=== PATIENT | male | born 2000 | race Caucasian/White ===

== ENCOUNTER 2023-04-22 23:23 | Emergency (ER) | payer MEDICARE, SELFPAY ==
[2023-04-22 23:25] VITALS: BP 135/80
[2023-04-23 00:56] LABS: COVID-19 Antigen Negative (Negative)
[2023-04-23] MEDS: DELTASONE 50 MG PO (02:48)
--- NOTE | 2023-04-23 03:13 | ED.GENMED ---
History of Present Illness
General
Chief Complaint: Cold/Flu/URI Symptoms
Source: patient
Exam Limitations: none
Time Seen by Provider: 04/23/23 00:18
Nursing documentation reviewed up to this point in time: agreed with
Travel History
Have you had any contact with someone who has COVID-19?: No
Do you have any symptoms of coronavirus? Fever > 100 degrees, chills, cough, shortness of breath, sore throat, loss of taste or smell, muscle aches, or headache?: No
History of Present Illness
History of Present Illness:
23-year-old male with no chronic medical issues presents to the emergency room for evaluation of cough. Patient reports persistent cough for the past 2 to 3 weeks. He says he will occasionally have episodes of coughing fits where he feels some
posttussive nausea but no vomiting. He says that he has been bringing up significant amount of dark brown sputum particularly over the past week or 2. He says that over the past 2 days he feels the cough is a bit worse and yesterday he noticed
that when he coughed he brought up a scant amount of blood in the sputum. Came to the emergency room to be assessed. He has not had any chest pain. He denies any shortness of breath. Denies any fevers or chills. He does have some congestion he
says mild sore throat. He denies any other complaints today.
Past History
Past History
ED Past Medical History: None
ED Past Surgical History: Other (unknown)
Social History
Tobacco: Smoker
Drug: Other (meth)
Review of Systems
Review of Systems
All Other Systems: ROS reviewed and negative except as documented in HPI and ROS
Constitutional: Reports fatigue; Denies fever or chills
EENT: Reports sore throat and runny nose
Respiratory: Reports cough; Denies trouble breathing
Cardiac: Denies chest pain or palpitations
ABD/GI: Denies abdominal pain, nausea or vomiting
: Denies flank pain
Musculoskeletal: Denies neck pain or back pain
Neurological: Denies headache, weakness or numbness
Phy Exam
Physical Exam
Physical Exam:
General: Awake, alert, oriented x3; no acute distress
Head: Normocephalic, atraumatic
Eyes: Conjunctiva normal, sclera anicteric
Throat: Airway intact, handling secretions, no oropharyngeal erythema/injection, midline uvula, no tonsillar exudate or enlargement
Neck: Trachea midline, supple without meningismus
Lungs: Clear to auscultation bilaterally, no wheezing, rales, rhonchi; occasional coughing
Heart: Regular rate and rhythm, no murmurs, gallops, or rubs
Abd: Soft, non distended, nontender
Neuro: Cranial nerves grossly intact, speech fluid
Skin: no rash
Extremities: No edema in extremities, warm and well-perfused
Scores
Heart Failure Risk
Heart Failure Risk Score: Not Applicable
Heart Score for Chest Pain Patients
STEMI patient?: Not applicable
Withdrawal Assessment of Alcohol
Withdrawal Assessment Completed?: Not applicable
Course
Orders/Labs/Results
Orders:
Orders
04/23/23 00:24
CR Chest - 2 Views Urgent
Comment:
Reason For Exam: cough
04/23/23 00:29
COVID-19 Antigen Urgent
Source: Nasal Swab
Influenza A+B Rapid Molecular Urgent
JUAN Source: Nasal Swab
Specimen Description:
04/23/23 02:31
Prednisone [Deltasone] 50 mg PO NOW STA
Vital Signs
Initial and Last Documented VS:
Initial Vital Signs
Temp Pulse Resp BP Pulse Ox
36.4 C 88 20 135/80 100
04/22/23 23:25 04/22/23 23:25 04/22/23 23:25 04/22/23 23:25 04/22/23 23:25
Last Documented Vital Signs
Temp Pulse Resp BP Pulse Ox
36.4 C 88 20 135/80 100
04/22/23 23:25 04/22/23 23:25 04/22/23 23:25 04/22/23 23:25 04/22/23 23:25
MDM/Problems Addressed
Differential Diagnosis Includes:
Viral URI, bronchitis, pneumonia
MDM/Problems Addressed:
23-year-old male presents for persistent cough for the past 2 to 3 weeks productive of dark sputum and he says scant amount of blood-tinged sputum yesterday. Vital signs all within normal limits here. Exam as above. Sent swabs for influenza and
COVID which were negative. Sent for chest x-ray reviewed by me shows no pneumonia. Suspect likely acute bronchitis. Will treat with a course of steroids, albuterol as needed for coughing fits and Mucinex. Patient feels comfortable this plan. He
will follow-up with his PCP. Spoke with return precautions all questions answered.
*Radiology
Radiology exam reviewed: preliminary read by ED provider and radiology read reviewed
*Pulse Oximetry
Patient hypoxic: no
*Critical Care Note
Total Time (30-74mins, 75-104mins- exclusive of procedures): Not Applicable
Data Reviewed
Source: patient
ED Attending Note
-
Portions of this chart may have been created with voice recognition software.� Occasional wrong word or��sound alike� substitutions may have occurred due to the inherent limitations of voice recognition software.
Discharge Plan
Departure
Patient Disposition: Home (Routine Discharge)
Date of Disposition: 04/23/23
Time of Disposition: 02:31
Patient with high blood pressure during this ER visit?: No
Discharge Problem:
Acute bronchitis
Instructions: Acute Bronchitis, Adult (DC)
Prescriptions:
New
albuterol sulfate [ProAir HFA] 90 mcg/actuation HFA aerosol inhaler
1 puff inhalation Q4HPRN PRN (Reason: shortness of breath) Qty: 6.7 0RF
guaifenesin [Mucinex] 600 mg tablet extended release 12hr
600 mg PO Q12H PRN (Reason: Cough) Qty: 14 0RF
prednisone 10 mg Tablet
See Rx Instructions .ROUTE .COMPLEX Qty: 30 0RF
Rx Instructions:
Take By Mouth:
40 mg daily x3 days, 30 mg daily x3 days,
20 mg daily x3 days, 10 mg daily x3 days.
Referrals:
Aditi Rose MD [Family Provider] - Call in 1-3 days for appt
Activity Restrictions/Additional Instructions:
Thank you for visiting the Emergency Department at [facility] [place].
1. Please schedule a follow up appointment as directed. Call first thing tomorrow morning to make an appointment.
2. If indicated, please take your medications as instructed and indicated on discharge paperwork.
3. If any of your symptoms do not improve, or persist, or become more severe within 6-12 hours, please return to the emergency department for further care.
4. Please return to the emergency department if you develop a headache, neck pain/stiffness, fever greater than 100.4F, chest pain, shortness of breath, persistent nausea, vomiting, slurred speech, difficulty walking, numbness/tingling, weakness,
signs of infection or any other symptoms that are worrisome to you.
Please call [phone] if you have any questions.
Interventions
Interventions:
*Risk Screen - Suicide Last Done: 04/22/23 23:25
*General Assessment Last Done: 04/23/23 00:35
*Neglect/Abuse Screening Last Done: 04/22/23 23:25
*ED COVID-19 Vaccine History Last Done: 04/23/23 00:33
*Nursing Disposition Last Done: 04/23/23 02:57
ED- Pulmonary Assessment Last Done: 04/23/23 00:17
Discharge Date and Time
Discharge Date/Time: 04/23/23 02:58
== END 2023-04-23 02:58 | disposition home or self-care (01) ==
LOC: EMR 23:23
PROVIDERS: EMERGENCY PHYSICIAN Emergency Medicine; FAMILY PHYSICIAN Internal Medicine
DX: J20.9 Acute bronchitis, unspecified (principal); F17.200 Nicotine dependence, unspecified, uncomplicated
CPT/HCPCS: 99283; 71046; 87502; 87811

== ENCOUNTER 2023-08-28 16:15 | Emergency (ER) | payer SELFPAY ==
[2023-08-28 16:21] VITALS: BP 114/79
--- NOTE | 2023-08-28 16:58 | ED.GENMED ---
History of Present Illness
General
Chief Complaint: Crisis Evaluation
Source: patient
Exam Limitations: none
Time Seen by Provider: 08/28/23 16:29
Travel History
Have you had any contact with someone who has COVID-19?: No
Do you have any symptoms of coronavirus? Fever > 100 degrees, chills, cough, shortness of breath, sore throat, loss of taste or smell, muscle aches, or headache?: No
History of Present Illness
History of Present Illness:
Patient presents to ED for medical evaluation after 302 petition was filed by his grandmother, secondary to 'psychosis' and today where he was found trespassing in his neighbor's house. Upon arrival, patient himself has no complaints. Denies
recent illness. Patient does not take any medications daily. Patient is an ex-smoker. Denies use of any illicit medications. Denies drinking alcohol.
Past History
Past History
ED Past Medical History: None
ED Past Surgical History: Other (unknown)
Social History
Tobacco: Smoker
Drug: Other (meth)
Review of Systems
Review of Systems
Allergies reviewed?: Yes
All Other Systems: ROS reviewed and negative except as documented in HPI and ROS
Constitutional: Reports no symptoms
Respiratory: Reports no symptoms
Cardiac: Reports no symptoms
ABD/GI: Reports no symptoms
Musculoskeletal: Reports no symptoms
Skin: Reports no symptoms
Neurological: Reports no symptoms
Psychiatric: Denies depression, anxiety or suicidal
Phy Exam
Physical Exam
Physical Exam:
Physical Exam
General: no apparent distress, not acutely ill. afebrile
Head: nc/at. eomi
Neck: supple. no meningeal signs.
Heart: s1/s2 regular rate and rhythm, no murmur. equal radial pulses.
Lungs: no acute respiratory distress. clear bilaterally
Abdomen: normal bowel sounds. not tender.
Neuro: alert and oriented. no focal neurological deficits
Skin: no rash
Psychiatric: well kept. interactive and cooperative
Extremities: no edema. no calf tenderness.
Course
Orders/Labs/Results
Orders:
Orders
08/28/23 16:49
Alcohol Urgent
Basic Metabolic Panel Urgent
Complete Blood Count/With Diff Urgent
08/28/23 16:57
Crisis Consult Urgent
Reason for Consult: mental status change
08/28/23 18:58
Urine Drug Abuse Screen Urgent
Date Specimen was Collected: 08/28/23
Time Specimen was Collected: 18:57
Abnormal Lab Results
08/28/23
16:49
RBC 4.39 L 10^6/uL
(4.70-6.10)
MCH 31.2 H pg
(27.0-31.0)
Creatinine 0.5 L mg/dL
(0.7-1.3)
08/28/23 16:49
08/28/23 16:49
Vital Signs
Initial and Last Documented VS:
Initial Vital Signs
Temp Pulse BP Pulse Ox
99.0 F 89 114/79 98
08/28/23 16:21 08/28/23 16:21 08/28/23 16:21 08/28/23 16:21
Last Documented Vital Signs
Temp Pulse BP Pulse Ox
99.0 F 89 114/79 98
08/28/23 16:21 08/28/23 16:21 08/28/23 16:21 08/28/23 16:21
MDM/Problems Addressed
MDM/Problems Addressed:
Awaiting evaluation by tele psychiatry.
Pt evaluated by tele-psychiatry - 302 upheld. Pt is medically cleared and will be transferred to psychiatric facility for further evaluation and treatment.
*Critical Care Note
Total Time (30-74mins, 75-104mins- exclusive of procedures): Not Applicable
ED Attending Note
-
Portions of this chart may have been created with voice recognition software.� Occasional wrong word or��sound alike� substitutions may have occurred due to the inherent limitations of voice recognition software.
Discharge Plan
Departure
Patient Disposition: Psych Facility
Date of Disposition: 08/28/23
Time of Disposition: 18:29
Patient Status:: 302
Discharge Problem:
Psychosis
Prescriptions:
No Action
albuterol sulfate [ProAir HFA] 90 mcg/actuation HFA aerosol inhaler
1 puff inhalation Q4HPRN PRN (Reason: shortness of breath) Qty: 6.7 0RF
guaifenesin [Mucinex] 600 mg tablet extended release 12hr
600 mg PO Q12H PRN (Reason: Cough) Qty: 14 0RF
prednisone 10 mg Tablet
See Rx Instructions .ROUTE .COMPLEX Qty: 30 0RF
Rx Instructions:
Take By Mouth:
40 mg daily x3 days, 30 mg daily x3 days,
20 mg daily x3 days, 10 mg daily x3 days.
Interventions
Interventions:
*Risk Screen - Suicide Last Done: 08/28/23 16:26
*General Assessment Last Done: 08/28/23 16:26
*Neglect/Abuse Screening Last Done: 08/28/23 16:26
*ED COVID-19 Vaccine History Last Done: 08/28/23 16:26
*Nursing Disposition Last Done: 08/28/23 22:47
ED-Psychological Assessment Last Done: 08/28/23 16:26
Discharge Date and Time
Discharge Date/Time: 08/28/23 22:48
Print Language: LATVIAN
[2023-08-28 17:00] LABS: % Basophils 0.5 % (0-2); % Eosinophils 0.8 % (0-6); % Immature Granulocytes 0.4 % (0-0.5); % Lymphocytes 39.3 % (20.5-51.1); % Monocytes 7.2 % (1.7-9.3); % Neutrophils 51.8 % (42.2-75.2); Absolute Eosinophils 0.1 10^3/uL (0-0.7); Absolute Monocytes 0.5 10^3/uL (0.1-0.6); Absolute Neutrophils 3.9 10^3/uL (1.4-6.5); Hemoglobin 13.7 g/dL (13.0-18.0); Mean Corp Hgb Conc. 33.4 g/dL (33.0-37.0); Mean Corpuscular Hgb 31.2 pg (27.0-31.0); Mean Corpuscular Volume 93.4 fL (80.0-94.0); Mean Platelet Volume 8.7 fL (7.4-10.4); Nucleated Red Blood Cells % 0 % (-); Platelet Count 229 10^3/uL (130-400); Red Blood Cell Count 4.39 10^6/uL (4.70-6.10); Red Cell Dist. Width 12.9 % (11.5-14.5); White Blood Cell Count 7.5 10^3/uL (4.8-10.8)
[2023-08-28 17:17] LABS: Blood Urea Nitrogen 17 mg/dl (9-20); Calcium 9.9 mg/dl (8.4-10.2); Carbon Dioxide 29 mmol/L (22-30); Chloride 100 mmol/L (98-107); Glucose 84 mg/dl (70-99); Potassium 4.3 mmol/L (3.5-5.1); Sodium 139 mmol/L (135-145); eGFR > 60.00
[2023-08-28 17:18] LABS: Alcohol None Detected
[2023-08-28 19:18] LABS: Amphetamines Negative (Negative); Barbiturates Negative (Negative); Benzodiazepines Negative (Negative); Buprenorphine Negative (Negative); Cocaine Negative (Negative); Marijuana Negative (Negative); Methadone Negative (Negative); Methamphetamines Negative (Negative); Opiates Negative (Negative); Phencyclidine Negative (Negative); Tricyclic Antidepressants Negative (Negative)
== END 2023-08-28 22:48 ==
LOC: EMR 16:15
PROVIDERS: EMERGENCY PHYSICIAN Emergency Medicine
DX: F29 Unspecified psychosis not due to a substance or known physiological condition (principal); F17.200 Nicotine dependence, unspecified, uncomplicated
CPT/HCPCS: 99283; 80048; 80306; 82077; 85025

== ENCOUNTER 2023-10-28 16:52 | Emergency (ER) | payer SELFPAY ==
[2023-10-28 16:56] VITALS: BP 128/77; BMI 19.3
--- NOTE | 2023-10-28 19:42 | ED.GENMED ---
History of Present Illness
General
Chief Complaint: Crisis Evaluation
Source: patient
Exam Limitations: none
Time Seen by Provider: 10/28/23 19:06
Nursing documentation reviewed up to this point in time: agreed with
History of Present Illness
History of Present Illness:
The patient is a 23-year-old man who was brought in on a 302 placed by his grandmother and brother. His grandmother reports that he has been leaving the home for days at a time. She is worried he is not taking care of himself. Patient admits to
hearing voices. He denies specific homicidal and suicidal thoughts. He reports he is God. 302 upheld by [employer].
Past History
Past History
ED Past Medical History: Psychiatric
ED Past Surgical History: Other (unknown)
Social History
Tobacco: Smoker
Alcohol: Other
Drug: Other (meth)
Personal: Single
Living: with family
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
Family History
Family History: Other
Review of Systems
Review of Systems
Allergies reviewed?: Yes
Other source history: family (Grandmother who is at the bedside)
All Other Systems: ROS reviewed and negative except as documented in HPI and ROS
Constitutional: Reports no symptoms
EENT: Reports no symptoms
Respiratory: Reports no symptoms
Cardiac: Reports no symptoms
ABD/GI: Reports no symptoms
: Reports no symptoms
Musculoskeletal: Reports no symptoms
Skin: Reports no symptoms
Neurological: Reports no symptoms
Endocrine: Reports no symptoms
Hematologic/Lymphatic: Reports no symptoms
Psychiatric: Reports no symptoms
Phy Exam
Physical Exam
Physical Exam:
Physical Exam
General: no apparent distress, not acutely ill. Flat affect
Neck: supple. no meningeal signs. normal psoterior pharynx
Heart: s1/s2 regular rate and rhythm, no murmur. equal radial pulses.
Lungs: no acute respiratory distress.
Abdomen: Soft, nontender
Neuro: alert and orientedx3. no focal neurological deficits
Skin: no rash
Psychiatric: well kept. Answers questions quietly and slowly. Flat affect. Appears slightly paranoid
Extremities: no edema.
Course
Vital Signs
Initial and Last Documented VS:
Initial Vital Signs
Temp Pulse Resp BP Pulse Ox
98 F 70 16 128/77 100
10/28/23 16:56 10/28/23 16:56 10/28/23 16:56 10/28/23 16:56 10/28/23 16:56
Last Documented Vital Signs
Temp Pulse Resp BP Pulse Ox
98 F 70 16 128/77 100
10/28/23 16:56 10/28/23 16:56 10/28/23 16:56 10/28/23 16:56 10/28/23 16:56
MDM/Problems Addressed
Differential Diagnosis Includes:
Acute psychosis, medication noncompliance, substance abuse
MDM/Problems Addressed:
Patient presents acutely psychotic with auditory hallucinations
Chronic conditions affecting care: Psychiatric illness
Acute Exacerbation and/or Progression of Chronic Illness: Psychiatric illness
*Pulse Oximetry
Patient hypoxic: no
*Critical Care Note
Total Time (30-74mins, 75-104mins- exclusive of procedures): Not Applicable
Data Reviewed
Review of Other/Old Records Reveals: Progress Notes (Telepsych assessment reviewed by me from today. Telepsych upheld 302)
Source: patient and family (Grandmother who is at the bedside)
ED Attending Note
-
Portions of this chart may have been created with voice recognition software.� Occasional wrong word or��sound alike� substitutions may have occurred due to the inherent limitations of voice recognition software.
Discharge Plan
Departure
Patient Disposition: Psych Facility
Date of Disposition: 10/28/23
Time of Disposition: 19:46
Patient Status:: 302
Patient with high blood pressure during this ER visit?: No
Condition: Fair
Covid-19: Not Applicable
Discharge Problem:
Acute exacerbation of psychosis
Prescriptions:
No Action
albuterol sulfate [ProAir HFA] 90 mcg/actuation HFA aerosol inhaler
1 puff inhalation Q4HPRN PRN (Reason: shortness of breath) Qty: 6.7 0RF
guaifenesin [Mucinex] 600 mg tablet extended release 12hr
600 mg PO Q12H PRN (Reason: Cough) Qty: 14 0RF
prednisone 10 mg Tablet
See Rx Instructions .ROUTE .COMPLEX Qty: 30 0RF
Rx Instructions:
Take By Mouth:
40 mg daily x3 days, 30 mg daily x3 days,
20 mg daily x3 days, 10 mg daily x3 days.
Referrals:
NONE,* [Family Provider] -
Interventions
Interventions:
*Risk Screen - Suicide Last Done: 10/28/23 16:56
*General Assessment Last Done: 10/28/23 16:56
*Neglect/Abuse Screening Last Done: 10/28/23 16:56
*ED COVID-19 Vaccine History Last Done: 10/28/23 16:56
ED-Psychological Assessment Last Done: 10/28/23 16:56
Discharge Date and Time
Print Language: TURKMEN
== END 2023-10-29 02:29 ==
LOC: EMR 16:52
PROVIDERS: EMERGENCY PHYSICIAN Emergency Medicine
DX: F29 Unspecified psychosis not due to a substance or known physiological condition (principal); F17.200 Nicotine dependence, unspecified, uncomplicated
CPT/HCPCS: 99285

== ENCOUNTER 2024-01-22 10:08 | Emergency (ER) | payer MEDICAID, SELFPAY ==
[2024-01-22 10:11] VITALS: BP 124/74
--- NOTE | 2024-01-22 11:07 | ED.GENMED ---
History of Present Illness
General
Chief Complaint: Musculo-Skeletal Complaint
Source: patient
Time Seen by Provider: 01/22/24 10:58
History of Present Illness
History of Present Illness:
23-year-old male with no significant past medical history presenting to the ER for evaluation after injuring left ring finger yesterday at work stating a heavy wooden board fell on top of his finger. Patient is right-hand dominant. No other
injuries were sustained.
Past History
Past History
ED Past Medical History: Psychiatric
ED Past Surgical History: Other (unknown)
Social History
Tobacco: Smoker
Alcohol: Other
Drug: Other (meth)
Personal: Single
Living: with family
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
Family History
Family History: Other
Review of Systems
Review of Systems
All Other Systems: ROS reviewed and negative except as documented in HPI and ROS
Phy Exam
Physical Exam
Physical Exam:
GENERAL: Alert , in no apparent distress
EYE: conjunctiva clear
Head: Normocephalic atraumatic
NECK: Supple,
ENT: mmm.
LUNGS: no acute respiratory distress
NEUROLOGICAL: Alert and oriented
SKIN: Warm and dry, skin intact.
MUSCULOSKELETAL: Left Hand: contusion to fingernail left ring finger. TTP. Remainder of extremity is WNL
PSYCH: Normal and appropriate interaction.
Scores
Heart Failure Risk
Heart Failure Risk Score: Not Applicable
Heart Score for Chest Pain Patients
STEMI patient?: Not applicable
Withdrawal Assessment of Alcohol
Withdrawal Assessment Completed?: Not applicable
Course
Orders/Labs/Results
Orders:
Orders
01/22/24 10:13
Finger(s)/Thumb 2 View Lt [CR Finger(s)/thumb Min 2 Vw Lt] Urgent
Comment:
Reason For Exam: pain, bruising
Indicate Which Finger:: Ring Finger
01/22/24 10:58
Aluminium Finger Splint Left ONCE
Vital Signs
Initial and Last Documented VS:
Initial Vital Signs
Temp Pulse Resp BP Pulse Ox
97.7 F 61 18 124/74 100
01/22/24 10:11 01/22/24 10:11 01/22/24 10:11 01/22/24 10:11 01/22/24 10:11
Last Documented Vital Signs
Temp Pulse Resp BP Pulse Ox
97.7 F 61 18 124/74 100
01/22/24 10:11 01/22/24 10:11 01/22/24 10:11 01/22/24 10:11 01/22/24 10:11
MDM/Problems Addressed
Differential Diagnosis Includes:
contusion, fracture, subungal hematoma
MDM/Problems Addressed:
23 year old male presenting to the ED for evaluation after injuring his left ring finger at work yesterday. X-ray was ordered from triage which shows a comminuted tuft fracture. Will place patient in a aluminum finger splint. Information for
orthopedics provided. Encourage patient to contact Ortho for follow-up. Motrin/Tylenol as needed for pain. Stable for discharge home.
*Radiology
Radiology exam reviewed: preliminary read by ED provider (Tuft fracture left ring finger)
*Pulse Oximetry
Patient hypoxic: no
*Critical Care Note
Total Time (30-74mins, 75-104mins- exclusive of procedures): Not Applicable
ED Attending Note
-
Portions of this chart may have been created with voice recognition software.� Occasional wrong word or��sound alike� substitutions may have occurred due to the inherent limitations of voice recognition software.
Discharge Plan
Departure
Patient Disposition: Home (Routine Discharge)
Date of Disposition: 01/22/24
Time of Disposition: 11:07
Patient with high blood pressure during this ER visit?: No
Discharge Problem:
Closed fracture of distal phalanx of left ring finger
Instructions: Finger Fracture ED
Prescriptions:
No Action
albuterol sulfate [ProAir HFA] 90 mcg/actuation HFA aerosol inhaler
1 puff inhalation Q4HPRN PRN (Reason: shortness of breath) Qty: 6.7 0RF
guaifenesin [Mucinex] 600 mg tablet extended release 12hr
600 mg PO Q12H PRN (Reason: Cough) Qty: 14 0RF
prednisone 10 mg Tablet
See Rx Instructions .ROUTE .COMPLEX Qty: 30 0RF
Rx Instructions:
Take By Mouth:
40 mg daily x3 days, 30 mg daily x3 days,
20 mg daily x3 days, 10 mg daily x3 days.
Referrals:
Charan Bailey MD [Active] - (Ortho - Please call for appointment)
UNKNOWN - PT DOES,NOT KNOW [Family Provider] -
Interventions
Interventions:
*Risk Screen - Suicide Last Done: 01/22/24 10:12
*General Assessment Last Done: 01/22/24 10:12
*Neglect/Abuse Screening Last Done: 01/22/24 10:12
Discharge Date and Time
Print Language: DIVEHI
[2024-01-22 11:38] VITALS: BMI 29.0
[2024-01-22 11:41] VITALS: BP 122/71
== END 2024-01-22 11:42 | disposition home or self-care (01) ==
LOC: EMR 10:08
PROVIDERS: EMERGENCY PHYSICIAN Student in an Organized Health Care Education/Training Program
DX: S62.635A Displaced fracture of distal phalanx of left ring finger, initial encounter for closed fracture (principal); W20.8XXA Other cause of strike by thrown, projected or falling object, initial encounter; Y99.0 Civilian activity done for income or pay; F17.200 Nicotine dependence, unspecified, uncomplicated
CPT/HCPCS: 29130; 99283; 73140

== ENCOUNTER 2024-07-30 12:58 | Emergency (ER) | payer MEDICARE, SELFPAY ==
[2024-07-30 13:08] VITALS: BP 127/79
--- NOTE | 2024-07-30 15:28 | ED.GENMED ---
History of Present Illness
General
Chief Complaint: Musculo-Skeletal Complaint
Source: patient
Time Seen by Provider: 07/30/24 14:00
History of Present Illness
History of Present Illness:
24-year-old male presenting to the emergency department for evaluation of nontraumatic right knee pain that has been gradually worsening over the last 4 days, today pain somewhat worse prompting him to come to the ER. He has not attempted any
medications for relief. Denies any history of similar. States pain is mainly worse along the medial aspect and worse to ambulate. 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
Denies any fevers or infectious redness or color changes to the extremity, weakness or numbness or any other concerns. Patient social history was noted for previous substance abuse however he notes he has been at least a few years sober and denies
any IV drug abuse.
Past History
Past History
ED Past Medical History: Psychiatric
ED Past Surgical History: Other (unknown)
Social History
Tobacco: Smoker
Alcohol: Other
Drug: Other (meth)
Personal: Single
Living: with family
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
Family History
Family History: Other
Review of Systems
Review of Systems
All Other Systems: ROS reviewed and negative except as documented in HPI and ROS
Phy Exam
Physical Exam
Physical Exam:
GENERAL: Alert , in no apparent distress
EYE: conjunctiva clear
Head: Normocephalic atraumatic
NECK: Supple,
ENT: mmm.
LUNGS: no acute respiratory distress
NEUROLOGICAL: Alert and oriented
SKIN: Warm and dry, skin intact.
MUSCULOSKELETAL: Right lower extremity: Soft tissue swelling with small joint effusion to the patella noted. Patient still allows full range of motion of the knee but this is diminished secondary to the soft tissue swelling. There is no overlying
erythema. Tenderness is more medial. Remainder of extremity is otherwise warm and well-perfused.
PSYCH: Normal and appropriate interaction.
Scores
Heart Failure Risk
Heart Failure Risk Score: Not Applicable
Heart Score for Chest Pain Patients
STEMI patient?: Not applicable
Withdrawal Assessment of Alcohol
Withdrawal Assessment Completed?: Not applicable
Course
Orders/Labs/Results
Orders:
Orders
07/30/24 13:11
Knee, Right 4 or More Views [CR Knee- Right 4 Or More View*] Urgent
Comment:
Reason For Exam: pain and swelling
Vital Signs
Initial and Last Documented VS:
Initial Vital Signs
Temp Pulse Resp BP Pulse Ox
98.5 F 79 18 127/79 96
07/30/24 13:08 07/30/24 13:08 07/30/24 13:08 07/30/24 13:08 07/30/24 13:08
Last Documented Vital Signs
Temp Pulse Resp BP Pulse Ox
98.5 F 79 18 127/79 96
07/30/24 13:08 07/30/24 13:08 07/30/24 13:08 07/30/24 13:08 07/30/24 13:08
MDM/Problems Addressed
Differential Diagnosis Includes:
Prepatellar bursitis, joint effusion, less concern for infectious etiology such as a septic joint or Lyme's. Considered gout
MDM/Problems Addressed:
24-year-old male presenting to the ER for evaluation of nontraumatic right knee pain for the last 4 days. Has not attempted medications for relief. Exam does reveal soft tissue swelling and a small joint effusion. No fevers or infectious
symptoms. No physical exam findings to suggest a septic joint. X-ray of the right knee ordered shows no acute fracture and no degenerative changes. Will trial 7-day course of anti-inflammatories. Encourage close follow-up with orthopedics.
Patient aware of return precautions.
*Radiology
Radiology exam reviewed: preliminary read by ED provider (No acute fracture, mild joint effusion)
*Pulse Oximetry
Patient hypoxic: no
*Critical Care Note
Total Time (30-74mins, 75-104mins- exclusive of procedures): Not Applicable
ED Attending Note
-
Portions of this chart may have been created with voice recognition software.� Occasional wrong word or��sound alike� substitutions may have occurred due to the inherent limitations of voice recognition software.
Discharge Plan
Departure
Patient Disposition: Home (Routine Discharge)
Date of Disposition: 07/30/24
Time of Disposition: 15:28
Patient with high blood pressure during this ER visit?: No
Discharge Problem:
Right knee pain
Instructions: Knee Pain (DC)
Prescriptions:
New
naproxen 500 mg tablet
500 mg PO BID 7 Days Qty: 14 0RF
No Action
albuterol sulfate [ProAir HFA] 90 mcg/actuation HFA aerosol inhaler
1 puff inhalation Q4HPRN PRN (Reason: shortness of breath) Qty: 6.7 0RF
guaifenesin [Mucinex] 600 mg tablet extended release 12hr
600 mg PO Q12H PRN (Reason: Cough) Qty: 14 0RF
prednisone 10 mg Tablet
See Rx Instructions .ROUTE .COMPLEX Qty: 30 0RF
Rx Instructions:
Take By Mouth:
40 mg daily x3 days, 30 mg daily x3 days,
20 mg daily x3 days, 10 mg daily x3 days.
Referrals:
Blake Kearney MD [Active] - (Ortho - Call for appointment)
Aditi Rose MD [Family Provider] -
Interventions
Interventions:
*Risk Screen - Suicide Last Done: 07/30/24 13:08
*General Assessment Last Done: 07/30/24 13:08
*Neglect/Abuse Screening Last Done: 07/30/24 13:08
*ED COVID-19 Vaccine History Last Done: 07/30/24 14:15
*Nursing Disposition Last Done: 07/30/24 15:32
ED-Musculoskeletal Assessment Last Done: 07/30/24 14:15
Discharge Date and Time
Discharge Date/Time: 07/30/24 15:33
Print Language: CAMEROONIAN
== END 2024-07-30 15:33 | disposition home or self-care (01) ==
LOC: EMR 12:58
PROVIDERS: EMERGENCY PHYSICIAN Emergency Medicine; FAMILY PHYSICIAN Internal Medicine
DX: M25.561 Pain in right knee (principal); F17.200 Nicotine dependence, unspecified, uncomplicated
CPT/HCPCS: 99283; 73564